=== PATIENT | male | born 1970 | race Two or more races ===

== ENCOUNTER 2024-10-11 15:47 | Emergency (ER) | payer SELFPAY ==
[2024-10-11 16:01] VITALS: BP 114/77; PULSE 100; RESP 18; TEMP 38.2; O2SAT 96; BMI 35.7
--- NOTE | 2024-10-11 16:14 | EKG_ITS ---
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
--- NOTE | 2024-10-11 16:15 | XR_ITS ---
Examination: PA lateral chest 2 views TECHNIQUE: Upright PA lateral chest 2 views Exam date and time: October 11, 2024 1742 hours INDICATIONS: Coughing SOB today. FINDINGS: Normal heart size Lungs are clear. The osseous structures are intact IMPRESSION: No active disease
[2024-10-11 16:26] VITALS: TEMP 38.2
[2024-10-11] MEDS: ACETAMINOPHEN 500 MG TABLET 1000 MG PO (16:26)
[2024-10-11 16:42] LABS: Lactate (Lactic Acid) 1.2 mMol/L (0.4-2.0)
[2024-10-11 16:48] LABS: Basophils % (Auto) 0 % (0-2.5); Eosinophils # (Auto) 0.2 Thou/mm3 (0.0-0.5); Eosinophils % (Auto) 2 % (0-10); Hematocrit 43.3 % (41.0-53.0); Immature Granulocytes % (Auto) 0 % (0-0); Immature Granulocytes Auto 0.05 Thou/mm3 (0.00-0.00); Lymphocytes # (Auto) 0.8 Thou/mm3 (1.0-4.8); Lymphocytes % (Auto) 6 % (10-50); Mean Corpuscular HGB Conc 34.6 g/dl (31.0-37.0); Mean Corpuscular Volume 84 fL (80-100); Monocytes # (Auto) 0.5 Thou/mm3 (0.0-0.8); Monocytes % (Auto) 4 % (0-12); Neutrophils # (Auto) 11.3 Thou/mm3 (1.8-7.7); Neutrophils % (Auto) 88 % (37-80); Nucleated Red Blood Cell % 0 /100 WBC (0); Platelet Count 359 Thou/mm3 (140-440); RDW Standard Deviation 41.4 fL (35.1-43.9); Red Blood Count 5.17 Miln/mm3 (4.50-5.90); White Blood Count 12.9 Thou/mm3 (3.8-10.6)
[2024-10-11 17:14] LABS: Alanine Aminotransferase 15 U/L (10-49); Albumin, Serum 4.4 gm/dL (3.5-5.0); Albumin/Globulin Ratio 1.5 (1.2-2.2); Alkaline Phosphatase 74 U/L (46-116); Anion Gap 10 (7-16); Aspartate Amino Transferase 14 U/L (0-34); BUN/Creatinine Ratio 13 Ratio (12-20); Bilirubin,Total 0.8 mg/dL (0.3-1.2); Blood Urea Nitrogen 13 mg/dL (9-23); Calcium 8.8 mg/dL (8.3-10.6); Calcium (Corrected) 8.8 mg/dL (8.5-10.1); Carbon Dioxide 24.5 mMol/L (20.0-31.0); Chloride 103 mMol/L (98-107); Estimated Creatinine Clearance 99.9 mL/min (>60); Glucose 159 mg/dL (74-106); Osmolality,Calculated 276 (275-295); Procalcitonin 0.09 ng/ml (0.0-0.49); Sodium 137 mMol/L (136-145); Total Protein 7.4 gm/dL (5.7-8.2); Troponin I 0.025 ng/mL (0.0-0.045); eGFR > 60 See Note
[2024-10-11 18:24] LABS: Collection Type, Urine Clean Catch
[2024-10-11 18:33] LABS: Bacteria,Urine Rare; Bilirubin,Urine Negative (Negative); Blood,Urine 1+ (Negative); Clarity,Urine Clear (Clear/Hazy); Color,Urine Yellow (Lt Yel-Yel); Glucose, Urine 1+ (Negative); Ketones,Urine Negative (Negative); Leukocyte Esterase,Urine Negative (Negative); Nitrite,Urine Negative (Negative); Protein,Urine Trace (Neg - Trace); RBC,Urine 25 /hpf (0-3); Specific Gravity,Urine 1.029 (1.001-1.035); Squamous Epithelial Cell,Urine < 1 /hpf (0-5); Urobilinogen,Urine Negative mg/dL (0.0-1.0); WBC,Urine < 1 /hpf (0-5)
[2024-10-11 20:09] VITALS: BP 118/74; PULSE 91; RESP 18; TEMP 37.2; O2SAT 97
--- NOTE | 2024-10-11 21:36 | EDNOTE_ITS ---
ED Anxiety RME/HPI General Chief Complaint: General Adult/Misc Complain Stated Complaint: WEAKNESS ALL OVER. BODY HEAVY Time Seen by Provider: 10/11/24 19:58 Arrival date/time: 10/11/24 15:47 RME / HPI RME / HPI narrative: Dr. Almonte?s Main ED Evaluation:?53 y/o male presents to ED c/o shortness of breath 4 days ago and nausea, weakness, eye twitching, and headache approximately 12 hours ago. 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 Patient denies a sense of impending doom, but was worried he may cause an accident at work. He believes that it may have been a panic attack. Patient denies any chest pain, vomiting, diarrhea or any other associated symptoms. Denies any falls or injuries. NKDA. Related Data Previous Rx's ?Medication ?Instructions ?Recorded lorazepam 0.5 mg tablet (Ativan) 0.5 mg PO BID PRN anx iety #12 tabs 10/11/24 Allergies Allergy/AdvReac Type Severity Reaction Status Date / Time No Known Allergies Allergy Verified 10/11/24 15:48 Review of Systems Review of Systems Systems Reviewed: All systems reviewed, normal except as documented Past Medical History Social History SMOKING STATUS: Former smoker ED Exam Narrative Physical exam: GENERAL APPEARANCE: alert and oriented x 4, well-developed, well-nourished, no acute distress VITALS: All vitals were reviewed and the pulse ox is 97% on room air, which is normal according to my interpretation. HEENT: Normocephalic, atraumatic; pupils equal, round, reactive to light; EOMI; mucous membranes pink, moist; oropharynx clear NECK: Supple LUNGS: CTABL; no wheezes, no rales, no rhonchi HEART: Regular rate, regular rhythm; normal S1, S2; no murmurs ABDOMEN: non distended; normal BS; soft, no tenderness, no guarding, no rebound; no masses, no organomegaly, no hernia BACK: no CVA tenderness EXTREMITIES: atraumatic; no edema NEUROLOGIC: awake; alert and oriented x4; cranial nerves II-XII grossly intact; no focal sensory or motor deficits PSYCHIATRIC: anxious mood and affect SKIN: warm, dry, normal color; no rashes Course Course Course Narrative: CXR is ordered for determining the etiology of shortness of breath. Quality Measures none Orders Category Date Time Status Bedside COVID-19 Antigen Test NOW Care 10/11/24 16:15 Active Bedside Influenza A&B Antigen Test NOW Care 10/11/24 16:15 Completed EKG (ED ONLY) *Do not use* NOW Care 10/11/24 16:15 Completed EKG (ED Only) Stat Exams 10/11/24 16:14 Draft XR chest 2V Stat Exams 10/11/24 16:15 Completed Blood Culture (Lab) Stat Lab 10/11/24 16:29 Received CBC Stat Lab 10/11/24 16:34 Completed Comprehensive Metabolic Panel Stat Lab 10/11/24 16:34 Completed Lactate (Lactic Acid) Stat Lab 10/11/24 16:34 Completed Procalcitonin Stat Lab 10/11/24 16:34 Completed Troponin I Stat Lab 10/11/24 16:34 Completed Urinalysis Stat Lab 10/11/24 18:11 Completed Urine Culture Stat Lab 10/11/24 18:11 Received Acetaminophen Tab [Tylenol ES Tab] Med 10/11/24 16:16 Discontinued 1,000 mg PO X1 ONE Vital Signs Vital signs: Vital Signs Temperature 100.7 F H 10/11/24 16:01 Pulse Rate 100 10/11/24 16:01 Respiratory Rate 18 10/11/24 16:01 Blood Pressure 114/77 10/11/24 16:01 Pulse Oximetry (%) 96 10/11/24 16:01 Oxygen Delivery Method Room Air 10/11/24 16:01 Anxiety MDM Narrative MDM Narrative: Scribe Attestation: Chen Gonzalez am scribing for and in the presence of Dr. Almonte. Provider Notation: Although this document has been carefully reviewed, there may still be some phonetic and other typographical errors.? These errors are purely grammatical due to imperfections in the software program and should not be construed in any way to? compromise the substance of the patient's medical care during this visit. Patient data External records reviewed:: [facility] previous records (No prior ED records available for review.) Clinical information provided by:: patient and spouse () Social determinants that could affect healthcare access:: none Patient has the following chronic illnesses:: None reported How is presenting disease/condition affected by chronic disease/condition?: no chronic disease Evaluation data The following diagnostics were reviewed and interpreted by me:: lab results, radiology exam(s) and EKG tracing(s) (EKG at 1643 shows normal sinus rhythm at 97, left axis deviation, no ectopy, no signs of acute ischemia, per my interpretation.) Lab and/or radiology exams considered but not ordered:: None Interpretation Summary: LABS Labs, per my interpretation, are unremarkable. [facility] Report Signed Patient: CARRIE LUIS Record#: [id number] Birthdate: 1970 Age/Sex: 53 / M Location: [facility] Attending Dr: Ordering Physician: Tyra SWAN)Sheldon NP Date of Service: 10/11/24 Procedure(s): XR chest 2V Accession Number(s): [id number] cc: Tyra SWAN),Sheldon TRUJILLO; Ramón Sharpe MD~ Examination: PA lateral chest 2 views TECHNIQUE: Upright PA lateral chest 2 views Exam date and time: October 11, 2024 1742 hours INDICATIONS: Coughing SOB today. FINDINGS: Normal heart size Lungs are clear. The osseous structures are intact IMPRESSION: No active disease Dictated By: Ramón Sharpe MD Signed By: <Electronically signed by Ramón Sharpe MD in OV> 10/11/24 1643 Medications / Prescriptions Medications or Prescriptions considered but not ordered:: None Medication administrations:: Medication Administration History Discontinued Medications Acetaminophen (Acetaminophen 500 Mg Tablet) 1,000 mg PO X1 ONE Stop: 10/11/24 16:17 Last Admin: 10/11/24 16:26 Dose: 1,000 mg Documented By: KF see above Consultations Consultation(s) initiated? (list below): No Diagnosis Differential diagnosis anxiety: hyperventilation, panic disorder and acute anxiety Most likely diagnosis given after review of the tests above:: See clinical impression below Admission Indicated Admission indicated?: not indicated Explain why admission is indicated or not indicated:: Patient has no emergent abnormalities in their studies and can be managed on an outpatient basis. Admission Request Was there a request for admission?: No Disposition Plan Disposition Plan: Discharge Discharge Attestation Discharge Attestation: The patient and all family members were given an opportunity to ask questions a nd understood the discharge instructions. Discharge instructions specifically effects, indications for sooner follow up or return to the emergency department, and the expected course of current diagnosis. Patient condition: Stable Discharge Plan Plan Patient Disposition: HOME (Self Care) Prescriptions/Referrals Prescriptions/Med Rec: New lorazepam [Ativan] 0.5 mg tablet 0.5 mg PO BID PRN (Reason: anxiety) Qty: 12 0RF Referrals: [facility] [Provider Group] - In 1 week No Primary/Family,Physician [Primary Care Provider] - In 1 week Problem List Clinical Impression: Anxiety reaction Patient/Caregiver Discharge Instructions Education Materials: ED Anxiety Reaction Additional Instructions: Please return to the emergency department if you have any worsening or any further medical problems. Otherwise you should follow-up with your primary care doctor or in the [facility] within the next several days There is a medication waiting for you at the pharmacy. It is called lorazepam or Ativan. This is a antianxiety medication. If you feel symptoms returning you can take 1 of these tabs. You cannot drive or operate heavy machinery after taking this medication. It may make you feel dizzy or sleepy. Print Language: Setswana Stand Alone Forms: [employer] Award Info., Patient Portal Info Letter
[2024-10-11] MEDS: LORazepam 0.5 MG TABLET PO (21:50)
[2024-10-11 21:51] VITALS: BP 116/70; PULSE 76; RESP 18; TEMP 37; O2SAT 98
== END 2024-10-11 21:52 | disposition home or self-care (01) ==
PROVIDERS: Nurse Practitioner Primary Care; Emergency Provider Emergency Medicine
DX: F41.1 Generalized anxiety disorder (principal); R06.02 Shortness of breath
CPT/HCPCS: 36415; 71046; 80053; 81001; 83605; 84145; 84484; 85025; 87040; 87086; 87400; 87811; 93005; 99283; A9270

== ENCOUNTER 2025-02-14 11:02 | Emergency (ER) | payer OTHER, SELFPAY ==
[2025-02-14 11:08] VITALS: PULSE 70; O2SAT 100; BMI 36.5
[2025-02-14 11:12] VITALS: BP 114/77; PULSE 65; RESP 18; TEMP 36.6; O2SAT 97
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
[2025-02-14 13:09] LABS: Anion Gap 10 (7-16); BUN/Creatinine Ratio 18 Ratio (12-20); Blood Urea Nitrogen 14 mg/dL (9-23); Calcium 8.8 mg/dL (8.3-10.6); Carbon Dioxide 25.8 mMol/L (20.0-31.0); Chloride 105 mMol/L (98-107); Creatinine (Component) 0.8 mg/dL (0.6-1.3); Estimated Creatinine Clearance 124.8 mL/min (>60); Glucose 137 mg/dL (74-106); Osmolality,Calculated 283 (275-295); Potassium 3.9 mMol/L (3.4-5.1); Sodium 141 mMol/L (136-145); eGFR > 60 See Note
[2025-02-14 15:51] VITALS: BP 124/76; PULSE 85; RESP 16; O2SAT 96
== END 2025-02-14 15:53 | disposition home or self-care (01) ==
PROVIDERS: Emergency Provider Emergency Medicine; PCP Family Medicine
DX: M54.50 Low back pain, unspecified (principal)
CPT/HCPCS: 36415; 74177; 80048; 99283; A4649; Q9967